=== PATIENT | female | born 1945 | race Caucasian/White ===

== ENCOUNTER 2020-11-20 05:55 | Day surgery (SDC) | payer MEDICARE, OTHER ==
[2020-11-20] MEDS ORDERED: Lactated Ringers 1,000 ML IV SCH (06:30)
[2020-11-20] MEDS ORDERED: CEFAZOLIN 2 GM-D5W BAG** 2 GM/50 ML ML IV SCH (06:30)
[2020-11-20] MEDS ORDERED: XYLOCAINE 1% HCL 20 ML MDV ONE (06:38)
[2020-11-20] MEDS ORDERED: BUPIVACAINE 0.5% VIAL IJ ONE (06:38)
--- NOTE | 2020-11-20 09:08 | XRAY ---
Indication: 5th toe arthroplasty. Intraoperative fluoroscopy provided for 15 seconds. 3 digital spot images submitted for interpretation demonstrates osteotomy involving head of 5th proximal phalanx. Correlate with intraoperative findings/report.
[2020-11-20 09:50] VITALS: BP 132/55; PULSE 65; O2SAT 96
--- NOTE | 2020-11-20 12:27 | XRAY ---
15 seconds fluoroscopy time in surgery for arthroplasty of the right 5th toe.
--- NOTE | 2020-11-23 09:00 | OP ---
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 POSTOPERATIVE DIAGNOSIS: Abductor varus rotation and fifth digit right foot, pain right foot and digital contracture right foot with lesion. PROCEDURE: Derotational arthroplasty of fifth digit. SURGEON: Jorden Jaeger DPM. REVENUE LIAISON: None. ANESTHESIA: Local 10 cc of a 1:1 mixture of 1% lidocaine plain and 0.5% bupivacaine plain injected in a mini-Tillman type block fashion. HEMOSTASIS: Ankle tourniquet set to 250 mm of Mercury for 19 minutes. ESTIMATED BLOOD LOSS: None. MATERIALS: 4-0 Monocryl, 3-0 Nylon. INJECTABLES: 10 cc of a 1:1 mixture of 1% lidocaine plain and 0.5% bupivacaine plain injected in a mini-Tillman type block fashion. INDICATION FOR SURGERY: Kriss is a very pleasant 75 year-old female who came to my office with concerns of a painful corn to the dorsal lateral aspect of the fifth digit of the right foot. This causes her so much pain that it is so tender to the touch that she would not allow me to even debride it the first time. She had so much significant pain that conservative measures were exhausted and the patient opted for surgical intervention at this time. She understands that a small wedge of skin will be removed in order to rotate the toe and the joint will be removed. This poses little complication however she is a diabetic and this risk was presented to her. Her hemoglobin A1C most recently measured on 10/16/2020 was 7.8. She does understand that there is a risk because of this however she is willing to proceed only if the risk is somewhat minimal. 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 The patient understands all the risks, benefits and complications of surgical intervention including but not limited to potential infection and potential failure of surgical intervention, the small risk of potential loss of limb or life is also a consideration. The patient understands all of this and wishes to proceed. DESCRIPTION OF PROCEDURE AND FINDINGS: The patient is brought into the OR and placed on the OR table in the supine position. After a timeout was called, identifying all of patient's identification factors as well as risk factors, a mini-Tillman type block was carried out under aseptic technique. At this time a well-padded ankle tourniquet was applied to the right ankle and the tourniquet was set to 250 mm of Mercury. At this time the right foot was prepped and draped in the typical sterile fashion using ChloraPrep and the right lower extremity was lowered onto the surgical field. At this time a skin marker was utilized to ellipse the incision from a distal medial to proximal-lateral position encompassing the lesion. At this time an Esmarch was utilized to exsanguinate the foot and the tourniquet was inflated. At this time a 15 blade was utilized to excise out the lesion identifying the interphalangeal joint. Very quickly after this the medial and lateral collateral ligaments were resected from the proximal phalanx and sagittal saw was utilized to resect the bone from this joint as well as the base of the middle phalanx. Following this there was significant mobility to the digit and the site was flushed with sterile saline. The subcutaneous tissue was then coapted utilizing 4-0 Monocryl and following this simple interrupted Nylon stitches were used to coapt and derotate the fifth digit. The patient was awake during the procedure and handled the procedure without complication. The patient was returned to the preoperative area with postoperative orders as indicated in the patient's chart. The patient handled the procedure and the anesthesia without complication.
== END 2020-11-20 09:20 | disposition home or self-care (01) ==
LOC: SDC 05:55
PROVIDERS: ATTEND Podiatrist Foot & Ankle Surgery
DX: M20.41 Other hammer toe(s) (acquired), right foot (principal); M79.671 Pain in right foot; M24.574 Contracture, right foot; E11.9 Type 2 diabetes mellitus without complications; Z79.899 Other long term (current) drug therapy
CPT/HCPCS: 28285; 73620; 76000; 82947; J0690